=== PATIENT | female | born 1955 | race Caucasian/White ===

== ENCOUNTER 2024-09-10 09:24 | Emergency (ER) | payer MEDICARE, OTHER ==
[2024-09-10 09:59] VITALS: PULSE 69
[2024-09-10] MEDS: Ketorolac 30 MG/ML SDV IM ONE (10:42)
[2024-09-10 13:53] VITALS: BP 138/62
== END 2024-09-10 12:30 | disposition home or self-care (01) ==
LOC: JD.ED 09:24
DX: M25.562 Pain in left knee (principal); E78.00 Pure hypercholesterolemia, unspecified; Z79.899 Other long term (current) drug therapy; Z88.8 Allergy status to other drugs, medicaments and biological substances; Z91.040 Latex allergy status
CPT/HCPCS: 73562; 96372; 99283; J1885